=== PATIENT | male | born 1955 | race Caucasian/White ===

== ENCOUNTER 2022-04-23 14:41 | Emergency (ER) | payer OTHER ==
--- OUTSIDE RECORDS SUMMARY | 2022-04-23 14:47 | XMS REPORT | Clinical Summary ---
:1955 Author Organization [facility] MD [facility] Address [address] [place] [address] Care Team Providers Name Role Phone Jillian Su MD Unavailable Carito Bear MD Primary Care Provider [phone] Allergies Active Allergy Reactions Severity Noted Date Comments Povidone-Iodine Rash Low 01/06/2018 Sulfa (Sulfonamide Antibiotics) GI Intolerance 006 Medications Medication Sig Dispensed Refills Start Date End Date Status levETIRAcetam (KEPPRA) Take 500 mg by 0 10/23/2017 Active 500 mg tablet mouth twice daily. budesonide-formoterol Inhale by mouth 2 0 Active (SYMBICORT) 160-4.5 (two) times a day mcg/actuation inhaler as needed. melatonin 5 mg cap Take 10 mg by 0 Active mouth nightly as needed. traMADol (ULTRAM) 50 TAKE 1 TABLET BY 2 12/19/2018 Active mg tablet MOUTH EVERY 6 HOURS NEEDED FOR 30 DAYS xyloxylin oral Swish and swallow 1800 mL 4 04/11/2020 Active suspension 15 mL 4 (four) (AMB-CMPD)Indications: times a day before Esophageal cancer, meals and nightly. Cancer associated pain Same as triple mix magic mouthwash OLANZapine (ZyPREXA) 5 Take 1 tablet (5 30 tablet 0 06/15/2020 Active mg tabletIndications: mg) by mouth at Insomnia, not bedtime. otherwise specified, Restlessness apixaban (Eliquis) 2.5 Take 1 tablet (2.5 60 tablet 2 08/23/19 21 Active mg tabletIndications: mg) by mouth every Other pulmonary 12 (twelve) hours. embolism without acute cor pulmonale, not otherwise specified morphine (MSIR) 15 mg Take 1 tablet (15 30 tablet 0 08/25/2020 Active IR tabletIndications: mg) by mouth every Esophageal cancer 4 (four) hours as needed for moderate pain. fluconazole (Diflucan) Take 1 tablet (200 15 tablet 0 10/03/19 Active 200 mg mg) by mouth tabletIndications: daily. On day 1, Esophageal cancer, take two tablets Candidal esophagitis once. Days 2-14 take one tablet once daily. Active Problems Patient Care Coordination Note Formatting of this note might be differe nt from the original. 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 Other pulmonary embolism without acute cor pulmonale 0 07/20/2018 Acute kidney failure 06/21/2018 Dizziness 06/21/2018 PCR positive for hepatitis C viral RNA (genotype 1A) 1 07/07/2017 Inadequate oral intake 04/26/2018 Dehydration 04/26/2018 Severe protein-calorie malnutrition 04/26/2018 Esophageal cancer 01/06/2018 Secondary malignant neoplasm of brain 01/06/2018 Swallowing painful 01/06/2018 Cancer associated pain 01/06/2018 Essential (primary) hypertension 01/06/2018 Alcohol abuse 01/06/2018 Tobacco use 01/06/2018 History of drug abuse 01/06/2018 Cellulitis and abscess of buttock 01/16/2007 Surgical History Surgery Date Site/Laterality Comments BUNIONECTOMY 06/02/2007 - Left 06/01/2008 FOOT SURGERY 06/02/1987 - Bilateral Rods in left sec ond toe 06/01/1988 CARPAL TUNNEL RELEASE Left CRANIECTOMY 11/30/2017 - 12/30/2017 EGD 09/30/2017 - Biopsy of the es ophagus 10/30/2017 positive for adenocarcinoma VASECTOMY 06/02/1982 - 06/01/1983 NE INSJ TUNNELED CTR VAD W/SUBQ 01/22/2018 Neck/Right Procedure: INSERTION OF PORT AGE 5 YR/> TUNNELED CENTRAL LY INSERTED CENTRAL VENOUS CATHETER WITH SUBCUTANEOUS POR T; Surgeon: Edy pina MD; Location: [facility]; Service: THRCV - VASCULAR SURGERY Medical devices from this surgery are in the Medical Devices section. NE CHG FLUOROGUIDE CNTRL JOSH 01/22/2018 Neck/Right Pro cedure: FLUORO ACCESS,PLACE,REPLACE,REMOVE GUID ANCE FOR CENTRAL VENOUS ACCESS DE VICE PLACEMENT, REPLA CEMENT, OR REMOVAL; Surg cristina: Edy Quintanilla MD; Location: [facility]; Service: THRCV - VASCULAR SURGERY Medical devices from this surgery are in the Medical Devices section. NE CHG US GUIDE, VASCULAR ACCESS 01/22/2018 Right Procedure: US GUIDANCE WITH EVAL OF POT ENTIAL ACCESS SITES, RE ALTIME US VISUALIZATION OF VASC NEEDLE ENTR Y; Surgeon: Edy pina MD; Location: [facility]; Service: THRCV - VASCULAR SURGERY Medical devices from this surgery are in the Medical Devices section. NE INSJ TUNNELED CTR VAD W/SUBQ 04/03/2018 Neck/Right Procedure: INSERTION OF PORT AGE 5 YR/> TUNNELED CENTRAL LY INSERTED CENTRAL VENOUS CATHETER WITH SUBCUTANEOUS POR T; Surgeon: Edy pina MD; Location: [facility]; Service: THRCV - VASCULAR SURGERY Medical devices from this surgery are in the Medical Devices section. NE CHG FLUOROGUIDE CNTRL JOSH 04/03/2018 Neck/N/A Pro cedure: FLUORO ACCESS,PLACE,REPLACE,REMOVE GUID ANCE FOR CENTRAL VENOUS ACCESS DE VICE PLACEMENT, REPLA CEMENT, OR REMOVAL; Surg cristina: Edy Quintanilla MD; Location: [facility]; Service: THRCV - VASCULAR SURGERY Medical devices from this surgery are in the Medical Devices section. NE CHG US GUIDE, VASCULAR ACCESS 04/03/2018 Neck/Right Procedure: US GUIDANCE WITH EVAL OF POT ENTIAL ACCESS SITES, RE ALTIME US VISUALIZATION OF VASC NEEDLE ENTR Y; Surgeon: Edy pina MD; Location: [facility]; Service: THRCV - VASCULAR SURGERY Medical devices from this surgery are in the Medical Devices section. NE RMVL FARZANEH CTR VAD W/SUBQ 04/03/2018 Chest/Right Proce dure: PORT-A-CATH PORT/ENGINE WIPER CTR/PRPH INSJ REMOVAL; Surgeon: Edy Quintanilla MD; Locat ion: [facility]; Service : THRCV - VASCULAR SURGE RY Medical devices from this surgery are in the Medical Devices section. NE APPLY STEREOTACTIC HEADFRAME 04/20/2018 N/A Procedure: APPLY FOR RADIOSURGERY STEREOTACTIC HE ADFRAME FOR RADIOSURGERY ; Surgeon: Marisela Montemayor MD; [facility]ati on: [facility] ; Service: NEUROSU RGERY NE CHG STEREOTACTIC RADIATION TX 04/20/2018 N/A Procedure: 2 STAR - MANAGEMENT CRANIAL LESION STEREO TACTIC RADIATION TX MANAGEMENT,CR ANIAL LESION; Surgeon: Estelle Lubin MD; Location: [facility]; Service: RADIATION ONCOLO GY NE APPLY STEREOTACTIC HEADFRAME 11/06/2018 N/A Procedure: APPLY FOR RADIOSURGERY STEREOTACTIC HE ADFRAME FOR RADIOSURGERY ; Surgeon: Madi Avilez MD; Lo cation: [facility] ; Service: NEUROSU RGERY NE CHG STEREOTACTIC RADIATION TX 11/06/2018 N/A Procedure: 2 STAR - MANAGEMENT CRANIAL LESION STEREO TACTIC RADIATION TX MANAGEMENT,CR ANIAL LESION; Surgeon: Estelle Lubin MD; [facility]: [facility]; Service: RADIATION ONCOLO GY NE ESOPHAGOGASTRODUODENOSCOPY US 07/29/2019 N/A Procedure: UPPER SCOPE W/ADJ STRXRS GASTROINTESTI NAL ENDOSCOPY OF ESO PHAGUS, STOMACH, OR DUOD ENUM ANDJ ADJACENT STRUCTURES, WITH ENDOSCOPIC ULTRA SOUND EXAMINATION; Max geon: Job Gonsalez MD; Loc ation: [facility]; Service: GASTROENTEROLOGY NE EGD TRANSORAL BIOPSY 07/29/2019 Esophagus/N/A Procedur e: UPPER SINGLE/MULTIPLE GASTROINTESTINAL ENDOSCOPY OF ESO PHAGUS, STOMACH, AND DUO DENUM WITH BIOPSY; Max geon: Jbo Gonsalez MD; Loc ation: [facility]; Service: GASTROENTEROLOGY NE EGD BALLOON DILATION ESOPHAGUS 10/20/2019 Esophagus/N/A Procedure: UPPER <30 MM DIAM GASTROINTESTINAL ENDOSCOPY WITH B ALLOON DILATION OF ESOP HAGUS; Surgeon: Olvin Bajwa MD; Location[facility]; Servi ce: GASTROENTEROLOGY NE EGD TRANSORAL BIOPSY 10/20/2019 Esophagus/N/A Procedur e: UPPER SINGLE/MULTIPLE GASTROINTESTINAL ENDOSCOPY OF ESO PHAGUS, STOMACH, AND DUO DENUM WITH BIOPSY; Max geon: Olvin Bajwa MD; Location: [facility]; Servi ce: GASTROENTEROLOGY NE EDG US EXAM SURGICAL ALTER STOM 09/25/2020 N/A Procedure: UPPER DUODENUM/JEJUNUM GASTROINTESTINA L ENDOSCOPY WITH ENDOSCOPIC ULTRA SOUND EXAMINATION; Max geon: Luis Yan MD ; Location: [facility]; Servi ce: GASTROENTEROLOGY Medical History Medical History Date Comments Tobacco use Teens Luna's esophagus 09/2017 Cellulitis and abscess of buttock 01/16/2007 Esophageal cancer 01/06/2018 Secondary malignant neoplasm of brain 01/06/2018 Hypertension 2009 not on meds since 6 months ago Pulmonary embolism 07/19/2018 Chronic obstructive pulmonary disease Family History Medical History Relation Name Comments Liver disease Brother -Thoracic or Lung Father lung cancer Diabetes Father Heart disease Father Lung cancer Father COPD Mother Coronary heart disease (CHD) Mother Heart disease Mother Stomach cancer Other cousin Stomach cancer Paternal Aunt Stomach cancer Paternal Grandfather Pancreatic cancer Paternal Uncle Relation Name Status Comments Brother Alive Daughter Alive Father (Age 71) from a ma ssive heart attack with lung cancer Mother Alive Other cousin (Age 62) Paternal Aunt (Age 78) Paternal Grandfather (Age 68) Paternal Uncle (Age 68) Sister 1 Alive Sister 2 Alive Sister 3 Alive Son Alive Social History Tobacco Use Types Packs/Day Years Used Date Smoking Tobacco: Every Day Cigarettes 1 47 Smokeless Tobacco: Former Tobacco Cessation: Ready to Quit: No; Co unseling Given: No Alcohol Use Standard Drinks/Week Comments Not Currently 0 (1 standard drink = 0.6 oz pure multip le drinks per day, none since alcohol) his last chemotherap y Sex Assigned at Date Recorded Male 10/05/2018 2:00 PM CDT Job Start Date Occupation Industry Not on file Not on file Not on file Obstetrics History Last Filed Vital Signs Not on file Plan of Treatment Health Maintenance Due Date Last Done Comments COVID-19 Vaccination (#1) 04/26/1956 Medical Devices Implanted Type Area Ritual Circumciser Device Shelf Model / Identifier Expiration Serial / Date Lot Fidelia Santana Isp 6fr - [id number] Implant Right: Chest BARD PE RIPHERAL 05/01/2019 [id number] / Implanted: Qty: 1 on 01/22/2018 by Edy Quintanilla MD at [facility] V[facility]ULAR / [id number] [place], Adalbertovue Slim 8fr - [id number] Port Right: BARD PERIP HERAL 01/30/2019 [id number] / Implanted: Qty: 1 on 04/03/2018 by Edy Quintanilla MD at [facility] Internal VASCULAR / Jugular [id number] Results Not on fileafter 04/23/2021 Advance Directives Type Date Recorded 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 Explanati on Advance Directives: 12/18/2018 Medical Jua N[place] r of Elevator Examiner And Adjuster Medical Power of Elevator Examiner And Adjuster Code Status Date Activated Date Inactivated Comments Full Code 10/21/2019 6:27 PM 10/22/2019 5:41 PM Code Status Date Activated Date Inactivated Comments Full Code 11/06/2018 6:10 AM 11/06/2018 6:51 PM Full Code 06/21/2018 10:30 PM 06/22/2018 5:03 PM Full Code 06/21/2018 10:30 PM 06/21/2018 10:30 PM Full Code 04/25/2018 4:37 AM 04/27/2018 3:11 PM Care Teams Motion Study Engineer Relationship Specialty Start Date End Date Jillian Su, PCP - External Internal Medicine 12/26/17 Referring [address] [place] [address] Sae Hurtado PCP - General Gastrointestinal Medical 01/02/18 MD [facility] [address] [place] [address] [phone]
--- OUTSIDE RECORDS SUMMARY | 2022-04-23 14:48 | XMS REPORT | Continuity of Care Document ---
:1955 Author Organization [facility] t Address [address] [place] [address] Care Team Providers Name Role [facility] [place] FRIDA Negron [facility] Primary Care Physician Unavailable Wilder Pinzon Attending Clinician Unavailable SYSTEM, PROVIDER NOT IN Attending Clinician Unavailable RAUL MORAN Attending Clinician Unavailable Raul Moran MD Attending Clinician OLVIN HERRERA Attending Clinician Unavailable Olvin Herrera DO Attending Clinician ROSA LEIJA Attending Clinician Unavailable CIARA HURTADO Attending Clinician Unavailable ИВАН DIGGS Attending Clinician Unavailable LORELEI MONTES Attending Clinician Unavailable ABHINAV SAMUEL Attending Clinician Unavailable Christopher Mcintosh Admitting Clinician Unavailable OLVIN HERRERA Admitting Clinician Unavailable Payers Payer Name Policy Type Policy Number Effective Date Expiration Date [facility][note 3] [id number] 2004 00:00:00 [employer] GENERIC [id number] 2021 00:00:00 FOR LIFE [id number] 2021 00:00:00 [place] [id number] 2018 00:00:00 Problems Condition Condition Condition Status Onset Resolution Last Treating Co mments Source Name Details Category Date Date Treatment Clinician Date Personal Personal Disease Active Overview: Un pita history of history of 3-15 Formattin ity of malignant malignant 00:00: [place] of [place] neoplasm neoplasm 00 note MD of of might be Anderso esophagus esophagus different n from the Cancer original. Center Added automatic ally from request for surgery [id number] Nausea and Nausea and Disease Active U nivers vomiting vomiting 5-21 ity of 00:00: [facility] Abdominal Abdominal Disease Active Uni vers pain pain 5-21 ity of 00:00: MD [facility] [place] Hypokalemi Hypokalemi Disease Active U nivers a a 5-21 ity of 00:00: MD [facility] [place] Secondary Secondary Disease Active Uni vers and and 9-24 ity of unspecifie [place]spec[place] 00 malignant malignant Mode rso neoplasm neoplasm n of of Cancer intra-abdo intra-abdo Ce nter golden golden lymph lymph nodes nodes Other Other Disease Active Univers pulmonary pulmonary 2-18 ity of embolism embolism 00:00: [place] without without 00 acute cor acute cor Mode rso pulmonale pulmonale n Cancer Center Acute Acute Disease Active Univers kidney kidney 1-20 ity of failure failure 00:00: 00 MD [facility] Dizziness Dizziness Disease Active Uni vers 1-20 ity of 00:00: MD [facility] PCR PCR Disease Active 2017-06 Univers positive positive 2-05 ity of for for 00:00: [place] hepatitis hepatitis 00 C viral C viral Anderso RNA RNA n (genotype (genotype Canc er 1A) 1A) Center Inadequate Inadequate Disease Active 2017-06 U nivers oral oral 1-25 ity of intake intake 00:00: 00 MD [facility] Dehydratio Dehydratio Disease Active 2017-06 U calistaers n n 1-25 ity of 00:00: [place] 00 MD [facility] 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 1-25 it y of ivania redd 00:00: [place] malnutriti malnutriti 00 on sampson donahue [facility] 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 01-06 ity of 00:00: [place] 00 MD [facility] 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 00 MD [facility] Swallowing Swallowing Disease Active U vernon painful painful 01-06 ity of 00:00: [place] 00 MD [facility] Cancer Cancer Disease Active Univers associated associated 01-06 it y of pain pain 00:00: 00 MD [facility] Essential Essential Disease Active Uni vers (primary) (primary) 01-06 ity of hypertensi hypertensi 00:00[place] on MD [facility] Alcohol Alcohol Disease Active Univers abuse abuse 01-06 ity of 00:00: [place] 00 MD [facility] Tobacco Tobacco Disease Active Univers use use 01-06 ity of 00:00: 00 MD [facility] History of History of Disease Active U nivers drug abuse drug abuse 01-06 it y of 00:00: [place] 00 MD [facility] Cellulitis Cellulitis Disease Active U nivers and and 01-16 ity of abscess of abscess of 00:[place] buttock buttock 00 MD [facility] Cellulitis Cellulitis Disease Active Overview : Univers and and 09-22 Formattin ity of abscess of abscess of 00:00: g of this [place] foot, foot, 00 note Medical except except might be Branch toes toes different from the original. Left foot celluliti s Chest pain Chest pain Disease Active Overview : Univers - Formattin ity of 00:00: g of this [place] 00 note Medical might be Branch different from the original. ICD10 Diagnosis Term Epic [facility] Utility Allergies, Adverse Reactions, Alerts Allergy Allergy Status Severity Reaction(s) Onset Inactive Treating Comm ents Source Name Type Date Date Clinician BETADINE DRUG Active Anaphylaxis 2021-06 Uni vers ANTISEPT 1-15 ity of IC GAUZE 00:00: [place] 00 Medical Branch Betadine Propensi Active Anaphylaxis 2021-06 U nivers Antisept ty to 1-15 ity of ic Gauze adverse 00:00: [place] reaction 00 Medical s Branch Sulfa DA Active DE RASH 2020-06 [facility] (Sulfona 2-08 [place] m[facility] 00:00: d Antibiot 00 Medical ics) Center Sulfa DA Active DE 2020-06 [facility] (Sulfona 0-13 [place] 00:00: d Antibiot 00 Medical ics) Center Sulfa DA Active DE RASH 2020-06 [facility] (Sulfona 0-13 [place] 00:00: d Antibiot 00 Medical ics) Center Sulfa DA Active DE [facility] (Sulfona 8-20 [place] [facility] 00:00: d Antibiot 00 Medical ics) Center Sulfa DA Active DE RASH [facility] (Sulfona 8-20 [place] [facility] 00:00: d Antibiot 00 Medical ics) Center Sulfa DA Active DE [facility] (Sulfona 5-17 [place] [facility] 00:00: d Antibiot 00 Medical ics) Center Sulfa DA Active DE RASH [facility] (Sulfona 5-17 [place] [facility] 00:00: d Antibiot 00 Medical ics) Center Povidone Propensi Active Rash Univer s -Iodine ty to 8-07 ity of adverse 00:00: [place] reaction 00 MD [facility] POVIDONE DRUG Active Low Rash 2017- -IODINE INGREDI 01-06 Anderso 00:00: n 00 POVIDONE DRUG Active Low Rash 2017- MD -IODINE INGREDI 01-06 Anderso 00:00: n 00 Sulfa DA Active DE [facility] (Sulfona 2-19 [place] [facility] 00:00: d Antibiot 00 Medical ics) Center Sulfa DA Active DE RASH [facility] (Sulfona 2-19 [place] [facility] 00:00: d Antibiot 00 Medical ics) Center Sulfa Propensi Active GI 2006-0 Univers (Sulfona ty to Intolerance 4-23 ity of mide adverse 00:00: [place] Antibiot reaction 00 MD ics) s [facility] SULFA Drug Active NAUSEA ONLY Unive rs (SULFONA Class 4-23 ity of MIDE 00:00: [place] ANTIBIOT 00 Medical ICS) Branch Sulfa Propensi Active Nausea Only Uni vers (Sulfona ty to 4-23 ity of mide adverse 00:00: [place] Antibiot reaction 00 Medica l ics) s Branch SULFA Drug Active Nausea MD (SULFONA Class 4-23 Anderso MIDE 00:00: n ANTIBIOT 00 ICS) SULFA Drug Active Nausea MD (SULFONA Class 4-23 Anderso MIDE 00:00: n ANTIBIOT 00 ICS) Family History Family Member Diagnosis Comments Start Date Stop Date Source Natural brother Liver disease [facility] [place] [facility] Natural daughter [facility]i ty [facility] [place] MD [facility] Natural father -Thoracic or Lung [facility] [place] [facility] Natural father Diabetes [facility] Natural father Heart disease Univers ity of [place] [facility] Natural father Lung cancer [facility] [place] [facility] Natural mother COPD [facility] Natural mother Coronary heart Univer sity of disease (CHD) [place] MD Shannon scott [facility] Natural mother Heart disease Univers ity of [place] [facility] Other Stomach cancer [facility] MD [facility] Paternal aunt Stomach cancer Univers ity of [place] MD [facility] Paternal Stomach cancer [place] of grandfather [place] MD Co[facility] Paternal uncle Pancreatic cancer Uni versity of [place] MD [facility] Center Natural sister [facility] MD [facility] Natural son [facility] MD [place] [facility] Center Social History Social Habit Start Date Stop Date Quantity Comments Source Exposure to Not sure University of SARS-CoV-2 [place] Medical (event) Branch History of Smokes tobacco University of tobacco use daily [facility] Alcohol intake 2020-10-02 2020-10-02 Ex-drinker University of 00:00:00 00:00:00 (finding) Richrad [facility] Alcohol Comment 2018-03-31 2018-03-31 multiple drinks per University of 00:00:00 00:00:00 day, none since his [place] last chemotherapy Cancer Center Cigarettes smoked 2018-01-19 2018-01-19 Univers ity of current (pack per 00:00:00 00:00:00 [place] Henny Darren ) - Reported Cancer Ce nter Cigarette 2018-01-19 2018-01-19 University of pack-years 00:00:00 00:00:00 Richard dimas [facility] Tobacco use and 2018-01-19 2018-01-19 Former smokeless Uni versity of exposure 00:00:00 00:00:00 tobacco user [place] [facility] Sex [birth year] Universit y of 00:00:00 00:00:00 [place] Medical [place] Smoking Status Start Date Stop Date Source Tobacco smoking consumption Univ [facility] Branch Smokes tobacco daily 2018-01-19 00:00:00 Univers ity of [facility] Medications Ordered Filled Start Stop Current Ordering Indication Dosage Frequency Signature Comments Components Source Medication Medication Date Date Medication? Clinician (SIG) Name Name hydroCHLORO 2021-06 Yes [id number] 25mg Take 1 Univers thiazide 25 1-15 tablet by ity of mg tablet 00:00: mouth 00 every Medical morning. Branch HYDROcodone 2021- No 1{tbl} 1 tablet, Univers -acetaminop 2-10 -10 Oral, ity of hen (NORCO) 15:45: 14:57 ONCE, 1 [place] 10-325 mg 00 :00 dose, On Medica l tablet 1 Denisse Branch tablet 07/12/21 at 0945, Routine methocarbam Yes [id number] 500mg Take 1 Univers oL 500 mg 2-10 tablet by ity o f tablet 00:00: mouth 3 [place] 00 (three) Medical times Branch daily. methocarbam Yes [id number] 500mg Take 1 Univers oL 500 mg 2-10 tablet by ity o f tablet 00:00: mouth 3 00 (three) Medical times Branch daily. traMADoL 2021- No [id number] 100mg Take 1 Unive rs 100 mg 24 2-10 -18 tablet by ity of hr tablet 00:00: 05:59 mouth [place] 00 :00 daily for Medical 7 days. Branch Indication s: acute pain, chronic pain methocarbam 2021- No 1000mg 1,000 mg, Univers oL 07-04 Oral, ity of (ROBAXIN) 16:00: 15:13 ONCE, 1 [place] tablet 00 :00 dose, On Medical 1,000 mg Fri07/04/21 Branc h at 1000, SARAH ondansetron 2021- No 4mg 4 mg, Slow Univers (ZOFRAN 07-04 IV Push, ity of (PF)) 16:00: 15:12 ONCE, 1 [place] injection 4 00 :00 dose, On Medi mallorie mg Fri07/04/21 Branch at 1000, Routine morpHINE 2021- No 4mg 4 mg, Slow Un pita injection 4 07-04 IV Push, ity of mg 16:00: 15:12 ONCE, 1 [place] 00 :00 dose, On Medical Fri07/04/21 Branch at 1000, STAT methocarbam 0 Yes [id number] 500mg Take 1 Univers oL 500 mg 07-04 tablet by ity o f tablet 00:00: mouth 3 [place] 00 (three) Medical times Branch daily. methylPREDN 2021-0 Yes [id number] Take by Univers ISolone 07-04 mouth ity of (MEDROL, 00:00: SEE-INSTRU Jason as JASMIN,) 4 mg 00 CTIONS. Medica l tablets follow Branch package directions naproxen 2021-0 Yes [id number] 550mg Take 1 U nivers sodium 2-02 tablet by ity of (ANAPROX 00:00: mouth 2 [place] DS) 550 mg 00 (two) Medical tablet times Branch daily with meals. methylPREDN 2021-0 Yes [id number] Take by Univers ISolone 07-04 mouth ity of (MEDROL, 00:00: SEE-INSTRU Jason as JASMIN,) 4 mg 00 CTIONS. Medica l tablets follow Branch package directions naproxen 2021-0 Yes [id number] 550mg Take 1 U nivers sodium 2-02 tablet by ity of (ANAPROX 00:00: mouth 2 [place] DS) 550 mg 00 (two) Medical tablet times Branch daily with meals. methylPREDN Yes [id number] Take by Univers ISolone 07-04 mouth ity of (MEDROL, 00:00: SEE-INSTRU Jason as JASMIN,) 4 mg 00 CTIONS. Medica l tablets follow Branch package directions naproxen Yes [id number] 550mg Take 1 U nivers sodium -02 tablet by ity of (ANAPROX 00:00: mouth 2 [place] DS) 550 mg 00 (two) Medical tablet times Branch daily with meals. traMADoL 2021- No [id number] 100mg Take 1 Unive rs 100 mg 24 07-04 tablet by ity of hr tablet 00:00: 05:59 mouth [place] 00 :00 daily for Medical 7 days. Branch Indication s: acute pain methocarbam 2021- No [id number] 500mg Take 1 Univers oL 500 mg 07-04 tablet by ity of tablet 00:00: 00:00 mouth 3 [place] 00 :00 (three) Medical times Branch daily. naproxen 2021- No [id number] 550mg Take 1 Univers sodium 07-04 tablet by ity of (ANAPROX 00:00: 00:00 mouth 2 [place] DS) 550 mg 00 :00 (two) Medical tablet times Branch daily with meals. methylPREDN 2021- No [id number] Take by Univers ISolone 07-04 mouth ity of (MEDROL, 00:00: 00:00 [place]-INSTRU [place] JASMIN,) 4 mg 00 :00 CTIONS. Medica l tablets follow Branch package directions methocarbam 2021- No [id number] 500mg Take 1 Univers oL 500 mg 07-04 tablet by ity of tablet 00:00: 00:00 mouth 3 [place] 00 :00 (three) Medical times Branch daily for 5 days. fluconazole Yes Candidal 200mg Take 1 Univers (Diflucan) 03 esophagitis tablet ity of 200 mg 00:00: (200 mg) [place] tablet 00 by mouth MD daily. On Anders day 1, n take two Cancer tablets Center once. Days 2-14 take one tablet once daily. budesonide- Yes Inhale by U nivers formoterol 4-26 mouth 2 ity of (SYMBICORT) 10:43: (two) [place] 160-4.5 15 times a MD mcg/actuati day as Michael o on inhaler needed. n Cancer Center melatonin 5 Yes 10mg Take 10 mg Univers mg cap 4-26 by mouth ity of 10:43: nightly as [place] 15 needed. MD [facility] morphine Yes Esophageal 15mg Take 1 U nivers (MSIR) 15 3-26 cancer tablet (15 it y of mg IR 00:00: mg) by [place] tablet 00 mouth MD every 4 Anderso (four) n hours as Cancer needed for Center moderate pain. apixaban Yes Other 2.5mg Take 1 Unive rs (Eliquis) 3-23 pulmonary tablet ity of 2.5 mg 00:00: embolism (2.5 mg) Jason as tablet 00 without by mouth acute cor every 12 Michael o pulmonale, (twelve) n not hours. Cancer otherwise Center specified OLANZapine Yes Restlessnes 5mg Take 1 Univers (ZyPREXA) 5 1-14 s tablet (5 ity of mg tablet 00:00: mg) by [place] 00 mouth at MD bedtime. [facility] xyloxylin 2019-06 Yes Cancer 15mL Swish and U nivers oral 1-10 associated swallow 15 ity of suspension 00:00: pain mL 4 [place] (AMB-CMPD) 00 (four) MD times a Anderso day before n meals and Cancer nightly. Center Same as triple mix magic mouthwash traMADol Yes TAKE 1 Univers (ULTRAM) 50 7-20 TABLET BY ity of mg tablet 00:00: MOUTH [place] 00 EVERY 6 MD HOURS Anderso NEEDED FOR n 30 DAYS Cancer Center morpHINE 2017-06 Yes 15mg Take 15 mg Uni vers I.R. 15 mg 1-27 by mouth ity o f tablet 05:51: every 6 [place] 17 (six) Medical hours as Branch needed for 24 (twenty-fo ur) hours. ondansetron 2017-06 Yes 4mg Take 4 mg U nivers 4 mg tablet 1-27 by mouth ity of 05:51: every 8 [place] 17 (eight) Medical hours as Branch needed. metoclopram 2017-06 Yes Take by Uni vers bj HCl 1-27 mouth. ity of (REGLAN 05:51: [place] ORAL) Medical Branch levetiracet 2017-06 Yes Take by Uni vers am (KEPPRA 1-27 mouth. ity of ORAL) 05:51: [place] [address] Medical Branch morpHINE 2017-06 Yes 15mg Take 15 mg Uni vers E.R. 30 mg 1-27 by mouth ity o f SR tablet 05:51: every 12 [place] 17 (twelve) Medical hours. Branch morpHINE 2017-06 Yes 15mg Take 15 mg Uni vers I.R. 15 mg 1-27 by mouth ity o f tablet 05:51: every 6 [place] [address] (six) Medical hours as Branch needed for 24 (twenty-fo ur) hours. ondansetron 2017-06 Yes 4mg Take 4 mg U nivers 4 mg tablet -27 by mouth ity of 05:51: every 8 [place] [address] (eight) Medical hours as Branch needed. metoclopram 2017-06 Yes Take by Uni vers bj HCl -27 mouth. ity of (REGLAN 05:51: [place] ORAL) Medical Branch levetiracet 2017-06 Yes Take by Uni vers am (KEPPRA -27 mouth. ity of ORAL) 05:51: [place] [address] Medical Branch morpHINE 2017-06 Yes 15mg Take 15 mg Uni vers E.R. 30 mg 1-27 by mouth ity o f SR tablet 05:51: every 12 [place] 17 (twelve) Medical hours. Branch morpHINE 2017-06 Yes 15mg Take 15 mg Uni vers I.R. 15 mg 1-27 by mouth ity o f tablet 05:51: every 6 [place] [address] (six) Medical hours as Branch needed for 24 (twenty-fo ur) hours. ondansetron 2017-06 Yes 4mg Take 4 mg U nivers 4 mg tablet 1-27 by mouth ity of 05:51: every 8 [place] [address] (eight) Medical hours as Branch needed. metoclopram 2017-06 Yes Take by Uni vers bj HCl 1-27 mouth. ity of (REGLAN 05:51: [place] ORAL) Medical Branch levetiracet 2017-06 Yes Take by Uni vers am (KEPPRA 1-27 mouth. ity of ORAL) 05:51: [place] [address] Medical Branch morpHINE 2017-06 Yes 15mg Take 15 mg Uni vers E.R. 30 mg 1-27 by mouth ity o f SR tablet 05:51: every 12 [place] 17 (twelve) Medical hours. Branch levETIRAcet Yes 500mg Take 500 U nivers am (KEPPRA) 5-24 mg by ity of 500 mg 00:00: mouth [place] tablet 00 twice MD daily. [facility] MINOCYCLINE Yes take 1 tab Univers 100 MG ORAL 8-22 twice a ity o f CAP 00:00: day for 7 Medical Branch HYDROCODONE Yes take 1-2 Un pita -ACETAMINOP 8-22 tab po q ity of HEN 5-325 00:00: 4-6 hrs [place] MG ORAL TAB 00 prn pain Medi mallorie Branch MINOCYCLINE Yes take 1 tab Univers 100 MG ORAL 8-22 twice a ity o f CAP 00:00: day for Medical Branch HYDROCODONE Yes take 1-2 Un pita -ACETAMINOP 8-22 tab po q ity of HEN 5-325 00:00: 4-6 hrs [place] MG ORAL TAB 00 prn pain Medi mallorie Branch MINOCYCLINE Yes take 1 tab Univers 100 MG ORAL 8-22 twice a ity o f CAP 00:00: day for Medical Branch HYDROCODONE Yes take 1-2 Un pita -ACETAMINOP 8-22 tab po q ity of HEN 5-325 00:00: 4-6 hrs [place] MG ORAL TAB 00 prn pain Medi mallorie Branch Vital Signs Vital Name Observation Time Observation Value Comments Source Systolic blood 2022-04-16 18:00:00 163 mm[Hg] Univer sity of pressure [facility] Diastolic blood 2022-04-16 18:00:00 108 mm[Hg] [facility] [place] [facility] Heart rate 2022-04-16 18:00:00 94 /min [facility] Body temperature 2022-04-16 18:00:00 36.67 [facility] Respiratory rate 2022-04-16 18:00:00 19 /min [facility] Body height 2022-04-16 18:00:00 182.9 cm [facility] Body weight 2022-04-16 18:00:00 58.968 kg [facility]i ty [facility] [place] [facility] BMI 2022-04-16 18:00:00 17.63 kg/m2 [facility]i ty [facility] [place] [facility] Oxygen saturation in 2022-04-16 18:00:00 97 /min University of Arterial blood by [place] Medi mallorie Pulse oximetry Branch Systolic blood 2021-07-12 14:20:00 158 mm[Hg] Univer sity of pressure [place] [facility] Diastolic blood 2021-07-12 14:20:00 104 mm[Hg] Unive rsity of pressure [place] [facility] Heart rate 2021-07-12 14:20:00 85 /min [facility]i [facility] [place] [facility] Body temperature 2021-07-12 14:20:00 36.44 Leydi Univ ersity [facility] [place] [facility] Respiratory rate 2021-07-12 14:20:00 16 /min Univ ersity of [place] [facility] [place] Body weight 2021-07-12 14:20:00 58.968 kg [facility]i ty [facility] [place] [facility] BMI 2021-07-12 14:20:00 20.36 kg/m2 [facility]i [facility] [place] [facility] Oxygen saturation in 2021-07-12 14:20:00 98 /min University of Arterial blood by [facility] mallorie Pulse oximetry Branch Systolic blood 2021-07-04 16:00:00 127 mm[Hg] Univer sity of pressure [place] [facility] Diastolic blood 2021-07-04 16:00:00 84 mm[Hg] Unive rsity of pressure [place] [facility] Heart rate 2021-07-04 16:00:00 87 /min [facility]i ty [facility] [place] [facility] Oxygen saturation in 2021-07-04 16:00:00 96 /min University of Arterial blood by [place] Medi mallorie Pulse oximetry Branch Respiratory rate 2021-07-04 15:24:05 18 /min Univ ersity [facility] [place] [facility] Body temperature 2021-07-04 14:21:00 36.94 Leydi Univ ers[facility] [place] [facility] Body weight 2021-07-04 14:21:00 58.968 kg [facility] [place] [facility] BMI 2021-07-04 14:21:00 20.36 kg/m2 [facility] [place] [facility] WEIGHT 2019-12-08 00:00:00 62.7 kg Procedures Procedure Date / Time Performed Performing Clinician [facility] e CONSENT/REFUSAL FOR 2022-04-16 17:41:10 [facility] Branch TREATMENT NOTICE OF PRIVACY 2021-07-12 14:11:31 [facility] Branch CONSENT/REFUSAL FOR 2021-07-12 14:10:46 Doctor Unassigned, No [facility] AND Name Medical Branch TREATMENT CT LUMBAR SPINE WO 2021-07-04 15:38:00 Olvin Herrera [facility] CONTRAST Medical Branch COMP. METABOLIC PANEL 2021-07-04 15:06:00 Olvin Herrera [facility] ([id number]) Medical [place] CBC WITH DIFF 2021-07-04 15:06:00 Olvin Herrera [place] o f [facility] Plan of Care Planned Activity Planned Date Details Comments Source Future Scheduled 2022-04-15 COVID-19 Vaccination [facility] Test 21:57:32 (#1) [code = COVID-19 [place] [facility] Vaccination (#1)] Center Encounters Start End Encounter Admission Attending Care Care Encounter Source Date/Time Date/Time Type Type Clinicians Facility Department ID 2020-10-13 Inpatient Pinzon, HCAPM HCAPM [id number] [facility] 09:36:11 Wilder Schultz [facility] 2019-12-03 Outpatient SYSTEM, [facility] [id number] 13:15:10 PROVIDER Michael o n 2022-04-16 2022-04-16 Emergency Albin MORAN [facility] ERT [id number] Univers 12:06:00 12:43:00 RAUL johnson [facility] 2022-04-16 2022-04-16 Emergency Dean [facility] [id number] Univers 12:06:00 12:43:00 Raul [place] [id number] i ty [facility] [id number] [facility] [id number] [place] [id number] Branch 2021-07-12 2021-07-12 Emergency Albin HERRERA WVCARLITA ERT [id number] Univers 08:22:00 09:16:00 OLVIN johnson [facility] 2021-07-12 2021-07-12 Emergency [facility] [id number] Univers 08:22:00 09:16:00 Olvin DE LA ROSA [id number] i ty of [place] [id number] [facility] [id number] [place] [address] Branch 2021-07-04 2021-07-04 Emergency X [facility] ERT [id number] Univers 08:24:00 10:51:00 OLVIN fredericmona [facility] 2021-07-04 2021-07-04 [facility] [id number] Univers 08:24:00 10:51:00 Olvin DE [place] ROS[place] [id number] i ty of [place] [id number] [facility] [id number] [place] [address] Branch 2021-05-09 2021-05-09 Outpatient EL Pinzon, HCAPM RADI [id number] [facility] 08:16:00 08:16:00 Wilder 09 [facility] 2021-03-14 2021-03-14 Outpatient EL Pinzon, HCAPM RADI [id number] [facility] 08:00:00 08:00:00 Wilder 20 [facility] 2021-01-19 2021-01-19 Outpatient EL Pinzon, HCAPM RADI [id number] [facility] 06:36:00 06:36:00 Wilder 56 [facility] 2020-01-19 2020-01-19 Outpatient EL ODILON MDA MDA [id number] 00:00:00 00:00:00 Michael KOENIG 2020-01-19 2020-01-19 Outpatient EL HURTADO, MDA MDA [id number] MD 00:00:00 00:00:00 CIARA donahue 2020-01-18 2020-01-18 Outpatient EL ODILON MDA MDA [id number] 00:00:00 00:00:00 Michael KOENIG 2020-01-17 2020-01-17 Outpatient EL HURTADO, MDA MDA [id number] 00:00:00 00:00:00 CIARA donahue 2020-01-17 2020-01-17 Outpatient EL HURTADO, MDA MDA [id number] MD 00:00:00 00:00:00 CIARA Gillilanders o n 2020-01-17 2020-01-17 Outpatient EL HURTADO, MDA MDA [id number] MD 00:00:00 00:00:00 CIARA Gillilanders o n 2020-01-04 2020-01-04 Outpatient EL DONTAE, MDA MDA [id number] MD 00:00:00 00:00:00 ИВАН Coello jese donahue 2020-01-04 2020-01-04 Outpatient EL MONTES, MDA MDA [id number] MD 00:00:00 00:00:00 LORELEI Antonio yarely n 2019-12-29 2019-12-29 Outpatient EL HURTADO, MDA MDA [id number] MD 00:00:00 00:00:00 CIARA Gillilanders o n 2019-12-29 2019-12-29 Outpatient EL HURTADO, MDA MDA [id number] MD 00:00:00 00:00:00 CIARA Gillilanders o n 2019-12-08 2019-12-08 Outpatient EL HURTADO, MDA MDA [id number] MD 08:39:24 18:04:05 CIARA Gillilanders o n 2019-12-08 2019-12-08 Outpatient EL HURTADO, MDA MDA [id number] MD 08:12:50 08:29:22 CIARA Gillilanders o n 2019-12-07 2019-12-07 Outpatient EL ODILON MDA MDA [id number] MD 08:35:26 09:15:09 Michael KOENIG 2019-12-07 2019-12-07 Outpatient EL HURTADO, MDA MDA [id number] 07:02:01 07:05:47 CIARA Gillilanders o n 2019-11-26 2019-11-26 Outpatient EL ODILON MDA MDA [id number] MD 00:00:00 00:00:00 Michael KOENIG 2019-11-25 2019-11-25 Outpatient EL ODILON MDA MDA [id number] MD 00:00:00 00:00:00 Michael KOENIG 2019-11-24 2019-11-24 Outpatient EL ROMO MDA MDA [id number] MD 10:52:01 11:32:51 Michael SAMSON 2019-11-17 2019-11-17 Outpatient JIMY HURTADO MDA [facility] [id number] 13:56:46 13:59:56 CIARA donahue Results Test Description Test Time Test Comments Results Result Comments Source COMP. METABOLIC PANEL (08421) 2021-07-04 15:47:17 Test Item Value Reference Range Interpretation Comme nts NA (test code = 3625976045) 132 mmol/L 135-145 L K (test code = 2628533369) 4.3 mmol/L 3.5-5.0 CL (test code = 9856446890) 99 mmol/L 98-108 CO2 TOTAL (test code = 2520752511) 25 mmol/L 23-31 AGAP (test code = 7712675936) 2-16 BUN (test code = 0011174869) 15 mg/dL 7-23 GLUCOSE (test code = 0730740862) 100 mg/dL 70-110 CREATININE (test code = 0.68 mg/dL 0.60-1.25 6502083628) TOTAL BILI (test code = 0.6 mg/dL 0.1-1.9 9409128398) CALCIUM (test code = 8322203828) 8.1 mg/dL 8.6-10.6 L T PROTEIN (test code = 2169937043) 7.0 g/dL 6.3-8.2 ALBUMIN (test code = 7235464907) 4.3 g/dL 3.5-5.0 ALK PHOS (test code = 1966867480) 75 U/L 34-122 ALTv (test code = 1742-6) 14 U/L 5-50 AST(SGOT) (test code = 3736881721) 28 U/L 13-40 eGFR (test code = 5961019390) mL/min/1.73m2 DEANN (test code = DEANN) Association of Glomerular Filtration Rate (GFR) and Staging of Kidney Disease* + +-------- + ------+| GFR (mL/min/1.73 m2) ?| With Kidney Damage ?| ?Without Kidney Damage+ +-- + +| ?>90 ?| ?Stage one ?| ? Normal ?+ +------- + -------+| ?60-89 ?| ?Stage two ?| ? Decreased GFR ? + +-------- + ------+| ?30-59 ?| ?Stage three ?| ? Stage three ? + +-------- + ------+| ?15-29 ?| ?Stage four ? | ? Stage four ?+ +------- + -------+| ?<15 (or dialysis) ? ?| ?Stage five ? | ? Stage five ?+ +------- + -------+ *Each stage assumes the associated GFR level has been in effect for at least three months. ?Stages 1 to 5, with or without kidney disease, indicate chronic kidney disease. Notes: Determination of stages one and two (with eGFR >59mL/min/1.73 m2) requires estimation of kidney damage for at least three months as defined by structural or functional abnormalities of the kidney, manifested by either:Pathological abnormalities or Markers of kidney damage (including abnormalities in the composition of the blood or urine or abnormalities in imaging tests). Lab Interpretation (test code = Abnormal 43582-1) [facility] WITH [id number] 15:28:37 Test Item Value Reference Range Interpretation Comments WBC (test code = See_Comment [Automated 2659-2) message] The sy stem which generated this result transmitted reference range : 4.20 - 10.70 10*3/?L. The reference range was not used to interpret this result as normal/abnormal . RBC (test code = See_Comment [Automated 187-8) message] The sy stem which generated this result transmitted reference range : 4.26 - 5.52 10*6/?L. The reference range was not used to interpret this result as normal/abnormal . HGB (test code = 15.6 g/dL 12.2-16.4 718-7) HCT (test code = 45.5 % 38.4-49.3 4544-3) MCV (test code = 94.0 fL 81.7-95.6 787-2) MCH (test code = 32.2 pg 26.1-32.7 785-6) MCHC (test code = 34.3 g/dL 31.2-35.0 786-4) RDW-SD (test code = 42.7 fL 38.5-51.6 96816-3) RDW-CV (test code = 12.2 % 12.1-15.4 788-0) PLT (test code = See_Comment L [Automated 777-3) message] The sy stem which generated this result transmitted reference range : 150 - 328 10*3/ ?L. The reference r jackeline was not used to interpret this result as normal/abnormal . MPV (test code = 9.6 fL 9.8-13.0 L 62860-5) IPF % (test code = 3.4 % 1.2-10.7 Platelet count 3320478729) measured by fluorescence method. NRBC/100 WBC (test See_Comment [Automat ed code = 3578211443) message] The system which generated this result transmitted reference range : 0.0 - 10.0 /100 WBCs. The refer ence range was not u sed to interpret th is result as normal/abnormal . NRBC x10^3 (test code <0.01 See_Comment [Auto mated = 4158204624) message] The s ystem which generated this result transmitted reference range : 10*3/?L. The reference range was not used to interpret this result as normal/abnormal . GRAN MAT (NEUT) % 70.5 % (test code = 770-8) IMM GRAN % (test code 0.40 % = 0514840584) LYMPH % (test code = 13.9 % 736-9) MONO % (test code = 14.4 % 5905-5) EOS % (test code = 0.4 % 713-8) BASO % (test code = 0.4 % 706-2) GRAN MAT x10^3(ANC) 3.13 10*3/uL 1.99-6.95 (test code = 5897867824) IMM GRAN x10^3 (test <0.03 0.00-0.06 code = 6436200569) LYMPH x10^3 (test code 0.62 10*3/uL 1.09-3.23 L = 731-0) MONO x10^3 (test code 0.64 10*3/uL 0.36-1.02 = 742-7) EOS x10^3 (test code = <0.03 0.06-0.53 L 711-2) BASO x10^3 (test code <0.03 0.01-0.09 = 704-7) Lab Interpretation Abnormal (test code = 59710-5) [facility]- MRI BRAIN W WO [id number] 10:19:00 [facility] 1955 Sex: M FAX: Christopher Hankins DO [phone] Camps: PM St: REG FAX: Wilder Mitchell MD [phone] Name: PIETER FOWLER [facility] : 1955 Age/S: 65/M [address] [facility] Unit #: [id number] Loc: [place] [address] Phys: Wilder Pinzon MD Acct: [id number] Dis Date: Status: REG CLI PHONE #: [phone] Exam Date: 05/09/2021 1000 FAX #: Reason: MALIGNANT NEOPLASM OF CARDIA EXAMS: CPT: [id number] MRI BRAIN W WO CONT 84157 Dictation location: U19. MRI BRAIN WITHOUT AND WITH CONTRAST HISTORY: MALIGNANT NEOPLASM OF CARDIA TECHNIQUE: Multiplanar and multiple pulse sequences were obtained throughout the brain without and with gadolinium (14 ml). COMPARISON: MRI brain 01/19/21 FINDINGS: Diffusion weighted imaging shows no evidence of acute ischemia. The pituitary and posterior fossa are unremarkable. Again noted are changes ofa left posterior parietal craniotomy with a small area of encephalomalacia along the medial posterior left parietal lobe. No soft tissue lesion or abnormal enhancement seen in the postoperative bed. Again noted are a few scattered T2/FLAIR signal hyperintensities within the white matter. No hemorrhage, mass, mass effect, hydrocephalus, midline shift or extra-axial fluid collection. Contrast images show a region of cortical enhancement along the right posterior temporal parietal region measuring appro ximately 1 cm. On the sagittal reformatted views there suggesting this is more likely artifact. There is likely artifact present as well on the left temporal lobe. Mild thickening of the ethmoid and frontal sinuses. The mastoid air cells are clear. IMPRESSION: New area of potentially cortical enhancement along the right temporal parietal region. However, the sagittal views suggest this may be artifact, favored. Attention on follow-up. Otherwise, no evidence of recurrent or metastatic disease. No evidence of acute ischemia. PAGE 1 Signed Report (CONTINUED) FAX: Christopher Marin DO [phone] Camps: PM St: REG FAX: Wilder Mitchell MD [phone] Name: PIETER FOWLER [facility] : 1955 Age/S: 65/M [address] [address] Unit #: [id number] Loc: [place] [address] Phys: Wilder Pinzon MD Acct: [id number] Dis Date: Status: REG CLI PHONE #: [phone] Exam Date: 05/09/2021 1000 FAX #: Reason: MALIGNANT NEOPLASM OF CARDIA EXAMS: CPT: [id number] MRI BRAIN W WO CONT 26444 (Continued) at 1019 Reported and signed by: Adilson Chacon M.D. CC: Christopher Mcintosh DO; Wilder Pinzon MD Technologist: Coco Augustin, RT(R)(MR) Transcribed Date/Time/By: 05/09/2021 (1019) :[email or web address] Orig Print D/T: S: 05/09/2021 (1028) PAGE 2 Signed Report- CT CHEST W/[id number] 10:06:00 [facility] : 1955 Sex: M Name: PIETER FOWLER [facility] : 1955 Age/S: 65 / M [address] [address] [place] Unit #: [id number] Loc:[place] [address] Phys: Wilder Pinzon MD Acct: [id number] Dis Date: Status: REG CLI PHONE #: [phone] Exam Date: 03/14/2021 0940 FAX #: Reason: NEOPLASM EXAMS: CPT: [id number] CT CHEST W/CONTRAST 92830 EXAMINATION: CT chest, abdomen, and pelvis with contrast INDICATION: History of esophageal cancer COMPARISON: 01/19/2021 LOCATION: S17 TECHNIQUE: Axial CT chest, abdomen, and pelvis was performed with IV contrast. Sagittal and coronal reformatted images were created. CT radiation dose optimizationis achieved for this examination by the use of a CT protocol in accordance with ACR practice guidelin es and adherence to occupational health and safety officer recommendations. DLP: 373 mGy-cm. FINDINGS: CHEST: Right chest portcatheter terminates within superior cavoatrial junction. Calcified right upper lobe nodules again noted. No suspicious lung nodules identified. No acute abnormality seen in the lungs. No pleural effusion or pneumothorax. Normal heart size. Coronary calcifications. Trace pericardial effusion. Ascending thoracic aorta upper limit of normal in caliber. No evidence of dissection. Normal caliber main pulmonary artery. No central pulmonary embolism is seen on non-CTA study. Unchanged nonspecific mediastinal and hilar lymph nodes measuring less than 1 cm in short axis dimension, largest in the precarinalspace measuring 0.9 cm in short axis dimension. No obvious esophageal mass. No acute or aggressive appearing osseous abnormality. ABDOMEN AND PELVIS: Tiny low-attenuation lesion in lateral segment of left hepatic lobe on image 14 is unchanged and too small to characterize. No other focal liver lesions. PAGE 1 Signed Report (CONTINUED) Name: PIETER FOWLER [facility] [place] : 1955 Age/S: 65 / M [address] [address] [place] Unit #: [id number] Loc: [place] [address] Phys: Wilder Pinzon MD Acct: [id number] Date: Status: REG CLI PHONE #: [phone] Exam Date: 03/14/2021 0940 FAX #: Reason: NEOPLASM E XAMS: CPT: [id number] CT CHEST W/CONTRAST 44166 (Continued) Gallbladder, pancreas, spleen, and adrenals are unremarkable. Unchanged subcentimeter low- attenuation renal lesions too small to characterize. Otherwise unremarkable kidneys. No evidence of intestinal obstruction or inflammation. Small fat-con taining inguinal hernias. Normal appendix. No enlarged abdominal or pelvic lymphadenopathy. No free intraperitoneal air or fluid. Normal caliber atherosclerotic abdominal aorta. 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 No acute or aggressive appearing osseous abnormality. IMPRESSION: No specific signs of malignancy in the chest, abdomen, and pelvis. at 1006 Reported and signed by: Jose Segal M.D. CC: Christopher Mcintosh DO; Wilder Pinzon MD Technologist:Norberto Montalvo, RT(R)(CT); .. CTDI: DLP: Trnscb Date/Time: 03/14/2021 (1006) [email or web address] Orig Print D/T: S: 03/14/2021 (1011) PAGE 2 Signed Report- CT ABD PELVIS W/[id number] 10:06:00 [facility] : 1955 Sex: M Name: PIETER FOWLER [facility] : 1955 Age/S: 65 / M [address] [address] [place] Unit #: [id number] Loc: [place] [address] Phys: Wilder Pinzon MD Acct: [id number] Dis Date: Status: REG CLI PHONE #: [phone] Exam Date: 03/14/2021929 FAX #: Reason: Hx Neoplasm EXAMS: CPT: [id number] CT ABD PELVIS W/CONT 98150 EXAMINATION: CT chest, abdomen, and pelvis with contrast INDICATION: History of esophagealcancer COMPARISON: 01/19/2021 LOCATION: S17 TECHNIQUE: Axial CT chest, abdomen, and pelvis was performed with IV contrast. Sagittal and coronal reformatted images were created. CT radiation dose optimization is achieved for this examination by the use of a CT protocol in accordance with ACR practice judy delines and adherence to occupational health and safety officer recommendations. DLP: 373 mGy-cm. FINDINGS: CHEST: Right chest port catheter terminates within superior cavoatrial junction. Calcified right upper lobe nodules again noted. No suspicious lung nodules identified. No acute abnormality seen in the lungs. No pleural effusion or pneumothorax. Normal heart size. Coronary calcifications. Trace pericardial effusion. Ascending thoracic aorta upper limit of normal in caliber. No evidence of dissection. Normal caliber main pulmonary artery. No central pulmonary embolism is seen on non-CTA study. Unchanged nonspecific mediastinal and hilar lymph nodes measuring less than 1 cm in short axis dimension, largest in the precarinal space measuring 0.9 cm in short axis dimension. No obvious esophageal mass. No acute or aggressive appearing osseous abnormality. ABDOMEN AND PELVIS: Tiny low-attenuation lesion in lateral segment of left hepatic lobe on image 14 is unchanged and too small to characterize. No other focal liver lesions. PAGE 1 Signed Report (CONTINUED) Name: PIETER FOWLER [facility] [place] : 1955 Age/S: 65/ M [address] [address] [place] Unit #: [id number] Loc: [place] [address] Phys: Wilder Pinzon MD Acct: [id number] Dis Date: Status: REG CLI PHONE #: [phone] Exam Date: 03/14/2021929 FAX #: Reason: Hx Neoplasm EXAMS: CPT: [id number] CT ABD PELVIS W/CONT 94036 (Continued) Gallbladder, pancreas, spleen, and adrenals are unremarkable. Unchanged subcentimeter low-attenuation renal lesions too small to characterize. Otherwise unremarkable kidneys. No evidence of intestinal obstruction or inflammation. Small fat-containing inguinal hernias. Normal appendix. No enlarged abdominal or pelvic lymphadenopathy. No free intraperitoneal air or fluid. Normal caliber atherosclerotic abdominal aorta. Pars defectsat L5 with associated grade 1 anterolisthesis. No acute or aggressive appearing osseous abnormality.IMPRESSION: No specific signs of malignancy in the chest, abdomen, and pelvis. at 1006 Reported and signed by: Jose Segal M.D. CC: Christopher Mcintosh DO; Wilder Pinzon MD Technologist:Norberto Montalvo, RT(R)(CT); .. CTDI: DLP: Trnscb Date/Time: 03/14/2021 (1006) [email or web address] Orig Print D/T: S: 03/14/2021 (1011) PAGE 2 Signed Report- CT ABD PELVIS W/CONT 2021-01-19 10:21:00 [facility] : 1955 Sex: M Name: [facility]OW[facility] 1955 Age/S: 65 / M [address] [address] [place] Unit #: [id number] Loc: [place] [address] Phys: Wilder Pinzon MD Acct: [id number] Dis Date: Status: REG CLI PHONE #: [phone] Exam Date: 01/19/2021 0900 FAX #: Reason: PRIMARY MALIGNANT NEOPLASM OF ESOPHAGUS (DISORD EXAMS: CPT: [id number] CT ABD PELVIS W/CONT 66076 EXAMINATION: - CT CHEST W/CONTRAST, - CT ABD PELVIS W/CONT. LOCATION: S17. HISTORY: Primary malignant neoplasm esophagus with metastases, patient presents forfollow-up. COMPARISON: PET scan report dated 09/22/2020. TECHNIQUE: CT imaging was performed of chest, abdomen and pelvis after intravenous administration of 100 cc of Isovue-300. Oral contrast material was also administered. One or more the following dose reduction techniques were used: Automated exposure control, adjustment of mA and/or kV according to patient size, and use of iterative reconstruction technique. FINDINGS: Right- sided Port-A-Cath tip overlies cavoatrial junction. Partially visualized thyroid gland appears unremarkable. No axillary, mediastinal or hilar bulky lymphadenopathy is identified. No mediastinal mass is noted. No aneurysmal dilatation of thoracic aorta. Atherosclerotic coronary arterial and vascular calcifications. No pericardial or pleural effusion. The trachea and central bronchi are patent. No pneumothorax. No focal consolidation. Bibasilar dependent changes. Emphysema. Small calcifications/scarring in right upper lobe. 3 mm right upper lobe nodules. Liver, gallbladder, spleen, pancreas and adrenals appear unremarkable. Too small to characterize low-attenuation structures within both kidneys. No hydronephrosis. Underdistended urinary bladder containing high attenuation material, presumably representing contrast from prior MR exam. The bowel loops appear normal incourse and caliber. No bowel obstruction. Unremarkable appendix. Small hiatal hernia. No abdominal or pelvic bulky lymphadenopathy. No pneumoperitoneum or free fluid. Atherosclerotic vascular calcifications. Small fat-containing bilateral inguinal hernias. PAGE 1 Signed Report (CONTINUED) Name: PIETER FOWLER [facility] : 1955 Age/S: 65 / M [address] [address] [place] Unit #: [id number] Loc: [place] [address] Phys: Wilder Pinzon MD Acct: [id number] Dis Date: Status: REG CLI PHONE #: [phone] Exam Date: 01/19/2021 0900 FAX #: Reason: PRIMARY MALIGNANT NEOPLASM OF ESOPHAGUS (DISORD EXAMS:CPT: [id number] CT ABD PELVIS W/CONT 75136 (Continued) Visualized osseous structures demonstrate degenerative changes. Bilateral L5 spondylolysis with mild anterolisthesis at lumbosacral junction. Severe degenerative changes at L1-L2 with partial bony fusion. IMPRESSION: Small hiatal hernia. No pathologically enlarged bulky lymphadenopathy in chest or abdomen. 3 mm right upper lobe lung nodules, can be reassessed at follow-up. Other findings as above. at 1021 Reported and signed by: Malathi Shepherd M.D. CC: Christopher Mcintosh DO; Wilder Pinzon MD Technologist:Norberto Montalvo, RT(R)(CT) CTDI: DLP: Trnscb Date/Time: 01/19/2021 (1021) [email or web address] Orig Print D/T: S: 01/19/2021 (1024) PAGE 2 Signed Report- CT CHEST W/[id number] 10:21:00 [facility] : 1955 Sex: M [facility] 1955 Age/S: 65 / M [address] [address] [place] Unit #: [id number] Loc: [place] [address] Phys: Wilder Pinzon MD Acct: [id number] Dis Date: Status: REG CLI PHONE #: [phone] Exam Date: 01/19/2021 0855 FAX #: Reason: PRIMARY MALIGNANT NEOPLASM OF ESOPHAGUS DISORDE EXAMS: CPT: [id number] CT CHEST W/CONTRAST 88161 EXAMINATION: - CT CHEST W/CONTRAST, - CT ABD PELVIS W/CONT. LOCATION: S17. HISTORY: Primary malignant neoplasm esophagus with metastases, patient presents for follow-up. COMPARISON: PET scan report dated 09/22/2020. TECHNIQUE: CT imaging was performed of chest,abdomen and pelvis after intravenous administration of 100 cc of Isovue-300. Oral contrast material was also administered. One or more the following dose reduction techniques were used: Automated exposure control, adjustment of mA and/or kV according to patient size, and use of iterative reconstruction technique. FINDINGS: Right- sided Port-A-Cath tip overlies cavoatrial junction. Partially visualizedthyroid gland appears unremarkable. No axillary, mediastinal or hilar bulky lymphadenopathy is identified. No mediastinal mass is noted. No aneurysmal dilatation of thoracic aorta. Atherosclerotic coronary arterial and vascular calcifications. No pericardial or pleural effusion. The trachea and central bronchi are patent. No pneumothorax. No focal consolidation. Bibasilar dependent changes. Emphysema. Small calcifications/scarring in right upper lobe. 3 mm right upper lobe nodules. Liver, gallbladder, spleen, pancreas and adrenals appear unremarkable. Too small to characterize low-attenuation structures within both kidneys. No hydronephrosis. Underdistended urinary bladder containing high attenuation material, presumably representing contrast from prior MR exam. The bowel loops appear normal in course and caliber. No bowel obstruction. Unremarkable appendix. Small hiatal hernia. No abdominal orpelvic bulky lymphadenopathy. No pneumoperitoneum or free fluid. Atherosclerotic vascular calcifications. Small fat-containing bilateral inguinal hernias. PAGE 1 Signed Report (CONTINUED) Name: PIETER FOWLER [facility] [place] : 1955 Age/S: 65 / M [address] [address] [place] Unit #: [id number] Loc: [place] [address] Phys: Wilder Pinzon MD Acct: [id number] Dis Date: Status: REG CLI PHONE #: [phone] Exam Date: 01/19/2021 0855 FAX #: Reason: PRIMARY MALIGNANT NEOPLASM OF ESOPHAGUS DISORDE EXAMS: CPT: [id number] CT CHEST W/CONTRAST 55598 (Continued) Visualized osseous structures demonstrate degenerative changes. Bilateral L5 spondylolysis with mild anterolisthesis at lumbosacral junction. Severe degenerative changes at L1-L2 with partial bony fusion. IMPRESSION: Small hiatal hernia. No pathologicallyenlarged bulky lymphadenopathy in chest or abdomen. 3 mm right upper lobe lung nodules, can be reassessed at follow-up. Other findings as above. at 1021 Reported and signed by: Malathi Shepherd M.D. CC: Christopher Mcintosh DO; Wilder Pinzon MD Technologist:Norberto Montalvo, RT(R)(CT) CTDI: DLP: Trnscb Date/Time: 01/19/2021 (1021) [email or web address] Orig Print D/T: S: 01/19/2021 (1024) PAGE 2 Signed Report- MRI BRAIN W WO [id number] 09:07:00 [facility] : 1955 Sex: M FAX: Christopher Hankins DO [phone] Camps: PM St: REG FAX: Y Wilder Pinzon MD [phone] Name: [place] : 1955 Age/S: 65/M [address] [address] [place] Unit #: [id number] Loc: [place] [address] Phys: Wilder Pinzon MD Acct: [id number] Dis Date: Status: REG CLI PHONE #: [phone] Exam Date: 01/19/2021 0803 FAX #: Reason: PRIMARY MALIGNANT NEOPLASM OF ESOPHAGUS EXAMS: CPT: [id number] MRI BRAIN W WO CONT 35292 Dictation location: U19. MRI BRAIN WITHOUT AND WITH CONTRAST HISTORY: PRIMARY MALIGNANT NEOPLASM OF ESOPHAGUS TECHNIQUE: Multiplanar and multiple pulse sequences were obtained throughout the brain without and with gadolinium (14 mL Dotarem). COMPARISON: MRI brain 10/16/20 FINDINGS: Diffusionweighted imaging shows no evidence of acute ischemia. The pituitary and posterior fossa are unremarkable. There is likely changes of a left posterior parietal craniotomy or domo hole. Small area of encephalomalacia is noted along the posterior left parietal lobe, unchanged. No definite underlying lesion or abnormal enhancement noted in the region. A few small scattered T2/FLAIR signal hyperintensities noted within the white matter. No hemorrhage, mass, mass effect, hydrocephalus, midline shift or extra-axial fluid collection. No abnormal enhancement. Mild thickening of the ethmoid sinuses and right frontal sinus. The mastoid air cells are clear. IMPRESSION: No evidence of acute ischemia or intracranial metastasis. Stable postoperative changes posteriorly along the left parietal region with underlying small area of encephalomalacia. No definite lesion or abnormal enhancement seen in the region to indicate residual or recurrent disease. PAGE 1 Signed Report (CONTINUED) FAX: Christopher Marin DO [phone] Camps: PM St: REG FAX: Wilder Mitchell MD [phone] Name: PIETER FOWLER [facility] : 1955 Age/S: 65/M [address] [address] [place] Unit #: [id number] Loc: [place] [address] Phys: Wilder Pinzon MD Acct:[id number] Dis Date: Status: REG CLI PHONE #: [phone] Exam Date: 01/19/2021 0851 FAX #: Reason: PRIMARY MALIGNANT NEOPLASM OF ESOPHAGUS EXAMS: CPT: [id number] MRI BRAIN W WO CONT 83301 (Continued) at 0907 Reported and signed by: Adilsno Chacon M.D. CC: Christopher Mcintosh DO; Wilder Pinzon MD Technologist: Mirian DoradoRT(R)(CT) Transcribed Date/Time/By: 01/19/2021 (0907) :[email or web address] Orig Print D/T: S: 01/19/2021 (0910) PAGE 2 Signed Report- MRI BRAIN W WO [id number] 10:08:00 [facility] : 1955 Sex: M FAX: Christopher Hankins DO [phone] Camps: PM St: REG FAX: Y Wilder Pinzon MD [phone] Name: PIETER FOWLER [facility] : 1955 Age/S: 64/M [id number] [address] [place] Unit #: [id number] Loc: [place] [address] Phys: Wilder Pinzon MD Acct: [id number] Dis Date: Status: REG CLI PHONE #: [phone] Exam Date: 10/16/2020 0940 FAX #: Reason: MALIGNANT NEOPLASM EXAMS: CPT: [id number] MRI BRAIN W WO CONT 25846 B2 - MRI BRAIN W WO CONT HISTORY: MALIGNANT NEOPLASM TECHNIQUE: Multiplanar multisequence MR images of the brain were obtained before and after intravenous contrast. COMPARISON: None FINDINGS: No abnormal brain p arenchymal signal. There is no mass, mass effect or abnormal extra-axial fluid collection. Diffusion-weighted images show no hyperacute, acute or early subacute infarction. The ventricles are normal insize, shape, and position. There are normal signal voids in the larger intracranial vessels. The paranasal sinuses and mastoid air cells are predominantly clear. The marrow signal pattern is within normal limits. No abnormal brain parenchymal or leptomeningeal enhancement. IMPRESSION: No significant intracranial abnormalities. Specifically, no evidence of metastatic disease. Electronically Signedby Lucero Arzola on 10/16/2020 at 1008 Reported and signed by: Dajuan Arzola M.D. CC: Christopher Cheatham DO; Wilder Pinzon MD Technologist: Coco Augustin RT(R)(MR) Transcribed Date/Time/By: 10/16/2020 (1008) :[email or web address] Orig Print D/T: S: 10/16/2020 (1011) PAGE 1 Signed ReportBLOOD UREA [id number] 09:17:00 Test Item Value Reference Range Interpretation Comments BLOOD UREA NITROGEN (test code = 11 MG/DL 7-18 N BUN) [id number] 09:17:00 Test Item Value Reference Range Interpretation Comments CREATININE (test code = CREAT) 0.6 MG/DL 0.8-1.3 L"
[2022-04-23] MEDS ORDERED: NA CHLORIDE 0.9% 1,000 ML ONE (15:46)
--- NOTE | 2022-04-23 15:53 | RAD REPORT ---
EXAM DESCRIPTION: CT - Head Brain Wo Cont - 04/23/2022 3:38 pm CLINICAL HISTORY: dizziness COMPARISON: No comparisons TECHNIQUE: All CT scans are performed using dose optimization technique as appropriate and may inclu de automated exposure control or mA/KV adjustment according to patient size. FINDINGS: No intracranial hemorrhage, hydrocephalus or extra-axial fluid collection.No areas of brai n edema or evidence of midline shift. Craniotomy changes at the occiput. The paranasal sinuses and mastoids are clear. The calvarium is intact. Remote right nasal bone fractu re. IMPRESSION: No acute intracranial abnormality.
--- NOTE | 2022-04-23 15:53 | RAD REPORT ---
EXAM DESCRIPTION: RAD - Chest Single View - 04/23/2022 3:47 pm CLINICAL HISTORY: hypertension COMPARISON: No comparisons FINDINGS: Lines: Right IJ approach Port-A-Cath with tip overlying the SVC . Lungs: No evidence of edema or pneumonia. Pleural: No significant pleural effusions or pneumothorax. Cardiac: The heart size is within normal limits. Mediastinum: Within normal limits. Bones: No acute fractures. Other: None IMPRESSION: No acute cardiopulmonary disease.
[2022-04-23 16:08] LABS: Urine Blood 2+ (Negative); Urine Glucose Negative (Negative); Urine Protein 2+ (Negative); Urine Specific Gravity >=1.030 (1.005-1.030); Urine pH 5.5 (5.0-7.0)
[2022-04-23 16:17] LABS: Absolute Lymphocytes (CBC) 0.5 K/uL (0.7-4.9); Hematocrit 49.9 % (39.6-49.0); MCV 96.2 fL (80-100); MPV 7.8 fL (7.6-11.3); RBC Red Blood Cell Count 5.18 M/uL (4.33-5.43)
[2022-04-23 16:19] LABS: Urine Mucus Slight /HPF (None Seen)
[2022-04-23 16:33] LABS: Protime INR 1.15
[2022-04-23 16:38] LABS: Bilirubin Direct 0.1 mg/dL (0-0.2); Bilirubin Total 0.4 mg/dL (0.2-1.0); Magnesium 2.2 mg/dL (1.8-2.4); Potassium 3.5 mmol/L (3.5-5.1); Protein, Total 7.2 g/dL (6.4-8.2); Troponin High Sensitivity 10.9 pg/mL (<58.9)
[2022-04-23] MEDS ORDERED: METOPROLOL TAR 25 MG TAB ONE (17:01)
[2022-04-23] MEDS ORDERED: ASPIRIN 81 MG CHEWABLE TABLET ONE (17:01)
--- NOTE | 2022-04-23 17:29 | EDPHYS ---
Physician Documentation [facility] Name: Viktor Velázquez Jr Age: 66 yrs Sex: Male : 1955 Arrival Date: 04/23/2022 Time: 14:47 Bed 24 Private MD: ED Physician Jacinto Viramontes HPI: 04/23 15:30 This 66 yrs old Male presents to ER via Ambulatory with complaints of Abnormal Lab cp Results, High Blood Pressure. 15:30 The patient has elevated blood pressure and discovered this at a physician's office. cp Historical: - Allergies: 14:56 Sulfa (Sulfonamide Antibiotics); ld1 14:56 Iodine; ld1 - Home Meds: 15:14 Hydrochlorothiazide Oral [Active]; Keppra Oral [Active]; eh3 - PMHx: 14:56 Hypertensive disorder; Cancer; ld1 15:14 COPD; eh3 - Immunization history:: Adult Immunizations up to date, Client reports receiving the 2nd dose of the Covid vaccine. - Social history:: Smoking status: Patient reports the use of cigarette tobacco products, smokes one pack cigarettes per day. Patient/guardian denies using alcohol. ROS: 15:35 Eyes: Negative for injury, pain, redness, and discharge. cp 15:35 Constitutional: Negative for body aches, chills, fever, poor PO intake. 15:35 ENT: Negative for drainage from ear(s), ear pain, sore throat, difficulty swallowing, difficulty handling secretions. 15:35 Cardiovascular: Negative for chest pain, edema. 15:35 Respiratory: Negative for cough, shortness of breath, wheezing. 15:35 Abdomen/GI: Negative for abdominal pain, nausea, vomiting, and diarrhea. Exam: 15:36 ECG was reviewed by the Attending Physician. cp 15:40 Constitutional: The patient appears in no acute distress, alert, awake, cp non-diaphoretic, non-toxic, well developed, well nourished. 15:40 Head/Face: Normocephalic, atraumatic. cp 15:40 Eyes: Periorbital structures: appear normal, Conjunctiva: normal, no exudate, no injection, Sclera: no appreciated abnormality, Lids and lashes: appear normal, bilaterally. 15:40 ENT: External ear(s): are unremarkable, Ear canal(s): are normal, clear, TM's: dullness, bilaterally, Nose: is normal, Mouth: Lips: moist, Oral mucosa: moist, Posterior pharynx: Airway: no evidence of obstruction, patent, swelling, is not appreciated, erythema, that is mild, exudate, is not appreciated. 15:40 Neck: ROM/movement: is normal, is supple, without pain, no range of motions limitations. 15:40 Chest/axilla: Inspection: normal, Palpation: crepitus, is not appreciated, tenderness, is not appreciated. 15:40 Cardiovascular: Rate: tachycardic, Rhythm: regular, Edema: is not appreciated, JVD: is not appreciated. 15:40 Respiratory: the patient does not display signs of respiratory distress, Respirations: normal, no use of accessory muscles, no retractions, labored breathing, is not present, Breath sounds: are clear throughout, no decreased breath sounds, no stridor, no wheezing. 15:40 Abdomen/GI: Inspection: abdomen appears normal, Palpation: abdomen is soft and non-tender, in all quadrants, rebound tenderness, is not appreciated, involuntary guarding, is not appreciated. 15:40 Back: pain, is absent, ROM is normal. 15:40 Neuro: Orientation: to person, place \T\ time. Mentation: is normal, Cerebellar function: is grossly normal, Motor: moves all fours, strength is normal, Sensation: is normal. Vital Signs: 14:53 BP 182 / 101; Resp 18; Temp 98.9(TE); Pulse Ox 100% on R/A; Weight 74.39 kg; Height 5 ld1 ft. 7 in. (170.18 cm); Pain 0/10; 15:17 BP 129 / 84; Pulse 106; Resp 18; Pulse Ox 98% on R/A; eh3 16:15 BP 145 / 92; Pulse 102; Resp 20; Pulse Ox 95% on R/A; eh3 17:15 BP 149 / 72; Pulse 105; Resp 20; Pulse Ox 95% on R/A; eh3 18:15 BP 100 / 71; Pulse 85; Resp 20; Pulse Ox 95% on R/A; eh3 19:15 BP 128 / 82; Pulse 87; Resp 20; Pulse Ox 97% on R/A; eh3 14:53 Body Mass Index 25.69 (74.39 kg, 170.18 cm) ld1 MDM: 15:12 Patient medically screened. 19:20 Data reviewed: vital signs, nurses notes, lab test result(s), EKG, radiologic studies, cp CT scan, plain films. 04/23 15:22 Order name: Basic Metabolic Panel; Complete Time: 16:44 cp 04/23 16:44 Interpretation: Normal except: NA 134; CO2 33. 04/23 15:22 Order name: CBC with Diff; Complete Time: 16:44 cp 04/23 16:44 Interpretation: Normal except: HCT 49.9; PLT 123; LYM% 9.0; MN% 17.9; LYMA 0.5. 04/23 15:22 Order name: LFT's; Complete Time: 16:44 04/23 15:22 Order name: Magnesium; Complete Time: 16:44 cp 04/23 15:22 Order name: PT-INR; Complete Time: 16:44 04/23 15:22 Order name: Troponin HS; Complete Time: 16:44 04/23 17:05 Interpretation: Within normal limits: Troponin HS 10.9. cp 04/23 15:22 Order name: CT Head Brain wo Cont; Complete Time: 16:11 04/23 16:12 Interpretation: Report reviewed. 04/23 15:22 Order name: XRAY Chest (1 view); Complete Time: 16:11 cp 04/23 16:12 Interpretation: Report review. 04/23 15:22 Order name: BNP; Complete Time: 16:44 cp 04/23 15:22 Order name: Urine Microscopic Only; Complete Time: 16:26 cp 04/23 16:26 Interpretation: Normal except: URBC 11-20. 04/23 16:08 Order name: Urine Dipstick-Ancillary; Complete Time: 16:11 EDMS 04/23 16:11 Interpretation: Normal except: UBLD 2+; UPROT 2+. cp 04/23 17:44 Order name: LAB Add On cp 04/23 17:44 Order name: D-Dimer; Complete Time: 19:20 cp 04/23 18:20 Order name: CT Chest For PE Angio; Complete Time: 19:20 cp 04/23 15:22 Order name: EKG; Complete Time: 15:23 cp 04/23 15:22 Order name: Cardiac monitoring; Complete Time: 15:24 04/23 15:22 Order name: EKG - Nurse/Tech; Complete Time: 15:35 04/23 15: Order name: IV Saline Lock; Complete Time: 16:02 04/23 15: Order name: Labs collected and sent; Complete Time: 16:02 04/23 15: Order name: O2 Per Protocol; Complete Time: 15:24 04/23 15: Order name: O2 Sat Monitoring; Complete Time: 15:24 04/23 15: Order name: Urine Dipstick-Ancillary (obtain specimen); Complete Time: 16:09 EC:36 Rate is 106 beats/min. Rhythm is regular. OK interval is normal. QRS interval is cp normal. QT interval is normal. T waves are Inverted in lead aVR. Interpreted by me. Reviewed by me. Administered Medications: 16:02 Drug: NS 0.9% 500 ml Route: IV; Rate: bolus; Site: right antecubital; 3 17:03 Follow up: IV Status: Completed infusion; IV Intake: 500ml 3 16:02 Drug: NS 0.9% 500 ml Route: IV; Rate: 100 ml/hr; Site: right antecubital; eh3 21:51 Follow up: IV Status: IV converted to saline lock; IV Intake: 400ml eh3 17:03 Drug: Metoprolol 25 mg Route: PO; eh3 17:49 Follow up: Response: Blood pressure is lowered eh3 17:03 Drug: Aspirin Chewable Tablet 324 mg Route: PO; eh3 17:50 Follow up: Response: No adverse reaction eh3 19:25 Drug: Nicoderm CQ Patch 21 mg/24 hr 1 patches Route: Transdermal; Site: affected area; eh3 Disposition: 16:03 Co-signature as Attending Physician, Jacinto Viramontes MD I agree with the assessment and rt plan of care. Disposition Summary: 04/23/22 19:22 Discharge Ordered Location: Home(04/23/22 19:22) cp Problem: new(04/23/22 19:22) cp Symptoms: have improved(04/23/22 19:22) cp Condition: Stable(04/23/22 19:22) cp Diagnosis - Hypertensive heart disease without heart failure(04/23/22 19:22) cp - COPD/ Chronic obstructive pulmonary disease, unspecified(04/23/22 19:22) cp Followup: cp - With: Private Physician - When: 2 - 3 days - Reason: Recheck today's complaints Discharge Instructions: - Discharge Summary Sheet cp - Chronic Obstructive Pulmonary Disease cp - Hypertension, Adult cp - Steps to Quit Smoking cp - Aspirin and Your Heart cp - Form - Blood Pressure Record Sheet cp - Smoking Tobacco Information, Adult cp - How to Take Your Blood Pressure cp Forms: - Medication Reconciliation Form cp - Thank You Letter cp - Antibiotic Education cp - Prescription Opioid Use cp Prescriptions: - Metoprolol Tartrate 25 mg Oral Tablet - take 0.5 tablet by ORAL route 2 times per day with a meal; 20 tablet; Refills: cp 0, Product Selection Permitted Signatures: Dispatcher [employer] EDMS Shaw Dash PA PA cp Shira Becker RN RN ld1 Codie Kelly RN RN eh3 Jacinto Viramontes MD MD rt Corrections: (The following items were deleted from the chart) 15:25 15:23 UA MICROSCOPIC+U.LAB.BRZ ordered. EDWV EDMS 17:04/22 15:35 Constitutional: Negative for body aches, chills, fever, poor PO intake, cp cp 04/23 17:09 04/22 15:35 Cardiovascular: Negative for chest pain, edema, cp cp 04/23 17:09 04/22 15:35 Respiratory: Negative for cough, shortness of breath, wheezing, cp cp 04/23 17:09 04/22 15:35 Eyes: Negative for injury, pain, redness, and discharge, cp cp 04/23 17:09 04/22 15:35 ENT: Negative for drainage from ear(s), ear pain, sore throat, difficulty cp swallowing, difficulty handling secretions, cp 04/23 17:09 04/22 15:35 Abdomen/GI: Negative for abdominal pain, nausea, vomiting, and diarrhea, cp cp 04/23 17:44 17:28 Home cp cp 17:44 17:28 new cp cp 17:44 17:28 have improved cp cp 17:44 17:28 Stable cp cp 17:44 17:28 Hypertensive heart disease without heart failure cp cp 17:44 17:28 COPD/ Chronic obstructive pulmonary disease, unspecified cp cp
--- NOTE | 2022-04-23 17:29 | ER ---
Nurse's Notes [facility] Name: Viktor Velázquez Jr Age: 66 yrs Sex: Male : 1955 Arrival Date: 04/23/2022 Time: 14:47 Bed 24 Private MD: Diagnosis: Hypertensive heart disease without heart failure;COPD/ Chronic obstructive pulmonary disease, unspecified Presentation: 04/23 14:53 Chief complaint: Patient states: Dizziness, high blood pressure since beginning of ld1 March. Pt reports being taken off HTN meds in 2018. Pt reporting frequent urination. Coronavirus screen: At this time, the client does not indicate any symptoms associated with coronavirus-19. Ebola Screen: No symptoms or risks identified at this time. Initial Sepsis Screen: Does the patient meet any 2 criteria? No. Patient's initial sepsis screen is negative. Does the patient have a suspected source of infection? No. Patient's initial sepsis screen is negative. Risk Assessment: Do you want to hurt yourself or someone else? Patient reports no desire to harm self or others. Onset of symptoms was April 23, 2022. 14:53 Method Of Arrival: Ambulatory ld1 14:53 Acuity: LEROY 3 ld1 Triage Assessment: 14:58 General: Appears in no apparent distress. comfortable, Behavior is calm, cooperative, ld1 appropriate for age. Pain: Denies pain. EENT: No signs and/or symptoms were reported regarding the EENT system. Neuro: Level of Consciousness is awake, alert, obeys commands, Oriented to person, place, time, situation, Appropriate for age. Cardiovascular: Capillary refill < 3 seconds Patient's skin is warm and dry. Respiratory: Airway is patent Respiratory effort is even, unlabored. GI: Abdomen is flat, non-distended. : No signs and/or symptoms were reported regarding the genitourinary system. Derm: No signs and/or symptoms reported regarding the dermatologic system. Musculoskeletal: No signs and/or symptoms reported regarding the musculoskeletal system. Historical: - Allergies: 14:56 Sulfa (Sulfonamide Antibiotics); ld1 14:56 Iodine; ld1 - Home Meds: 15:14 Hydrochlorothiazide Oral [Active]; Keppra Oral [Active]; eh3 - PMHx: 14:56 Hypertensive disorder; Cancer; ld1 15:14 COPD; eh3 - Immunization history:: Adult Immunizations up to date, Client reports receiving the 2nd dose of the Covid vaccine. - Social history:: Smoking status: Patient reports the use of cigarette tobacco products, smokes one pack cigarettes per day. Patient/guardian denies using alcohol. Screenin:17 Abuse screen: Denies threats or abuse. Denies injuries from another. Nutritional eh3 screening: No deficits noted. Tuberculosis screening: No symptoms or risk factors identified. Fall Risk None identified. Assessment: 15:17 General: Appears in no apparent distress. comfortable, Behavior is calm, cooperative, eh3 appropriate for age. Pain: Denies pain. Neuro: Level of Consciousness is awake, alert, obeys commands, Oriented to person, place, time, situation. Cardiovascular: Capillary refill < 3 seconds Patient's skin is warm and dry. Respiratory: Airway is patent Respiratory effort is even, unlabored, Respiratory pattern is regular, symmetrical. GI: No signs and/or symptoms were reported involving the gastrointestinal system. Abdomen is round non-distended. : No signs and/or symptoms were reported regarding the genitourinary system. EENT: No signs and/or symptoms were reported regarding the EENT system. Derm: No signs and/or symptoms reported regarding the dermatologic system. Musculoskeletal: No signs and/or symptoms reported regarding the musculoskeletal system. Circulation, motion, and sensation intact. Range of motion: intact in all extremities. 16:15 Reassessment: Patient appears in no apparent distress at this time. Patient and/or eh3 family updated on plan of care and expected duration. Pain level reassessed. Patient is alert, oriented x 3, equal unlabored respirations, skin warm/dry/pink. 17:15 Reassessment: Patient appears in no apparent distress at this time. Patient and/or eh3 family updated on plan of care and expected duration. Pain level reassessed. Patient is alert, oriented x 3, equal unlabored respirations, skin warm/dry/pink. 18:15 Reassessment: Patient appears in no apparent distress at this time. Patient and/or eh3 family updated on plan of care and expected duration. Pain level reassessed. Patient is alert, oriented x 3, equal unlabored respirations, skin warm/dry/pink. 19:15 Reassessment: Patient appears in no apparent distress at this time. Patient and/or eh3 family updated on plan of care and expected duration. Pain level reassessed. Patient is alert, oriented x 3, equal unlabored respirations, skin warm/dry/pink. Vital Signs: 14:53 BP 182 / 101; Resp 18; Temp 98.9(TE); Pulse Ox 100% on R/A; Weight 74.39 kg; Height 5 ld1 ft. 7 in. (170.18 cm); Pain 0/10; 15:17 BP 129 / 84; Pulse 106; Resp 18; Pulse Ox 98% on R/A; eh3 16:15 BP 145 / 92; Pulse 102; Resp 20; Pulse Ox 95% on R/A; eh3 17:15 BP 149 / 72; Pulse 105; Resp 20; Pulse Ox 95% on R/A; eh3 18:15 BP 100 / 71; Pulse 85; Resp 20; Pulse Ox 95% on R/A; eh3 19:15 BP 128 / 82; Pulse 87; Resp 20; Pulse Ox 97% on R/A; eh3 14:53 Body Mass Index 25.69 (74.39 kg, 170.18 cm) ld1 Vitals: 15:17 Cardiac Rhythm Assessment Sinus tach. 3 ED Course: 14:47 Patient arrived in ED. rg4 14:56 Triage completed. ld1 14:58 Arm band placed on right wrist. ld1 15:07 Codie Kelly, RN is Primary Nurse. eh3 15:12 Shaw Dash PA is PHCP. cp 15:12 Jacinto Viramontes MD is Attending Physician. cp 15:17 Patient has correct armband on for positive identification. Bed in low position. Call [facility] light in reach. Side rails up X2. Client placed on continuous cardiac and pulse oximetry monitoring. NIBP monitoring applied. Door closed. Noise minimized. 15:39 CT Head Brain wo Cont In Process Unspecified. EDMS 15:49 XRAY Chest (1 view) In Process Unspecified. EDMS 15:58 Inserted saline lock: 20 gauge in right antecubital area, using aseptic technique. 3 Blood collected. 18:00 D-Dimer Sent. eh3 18:00 LAB Add On Sent. eh3 19:10 CT Chest For PE Angio In Process Unspecified. EDMS 19:44 No provider procedures requiring assistance completed. IV discontinued, intact, eh3 bleeding controlled, No redness/swelling at site. Pressure dressing applied. Administered Medications: 16:02 Drug: NS 0.9% 500 ml Route: IV; Rate: bolus; Site: right antecubital; eh3 17:03 Follow up: IV Status: Completed infusion; IV Intake: 500ml eh3 16:02 Drug: NS 0.9% 500 ml Route: IV; Rate: 100 ml/hr; Site: right antecubital; eh3 21:51 Follow up: IV Status: IV converted to saline lock; IV Intake: 400ml eh3 17:03 Drug: Metoprolol 25 mg Route: PO; eh3 17:49 Follow up: Response: Blood pressure is lowered eh3 17:03 Drug: Aspirin Chewable Tablet 324 mg Route: PO; eh3 17:50 Follow up: Response: No adverse reaction eh3 19:25 Drug: Nicoderm CQ Patch 21 mg/24 hr 1 patches Route: Transdermal; Site: affected area; eh3 Medication: 19:44 VIS not applicable for this client. eh3 Intake: 17:03 IV: 500ml; Total: 500ml. eh3 21:51 IV: 400ml; Total: 900ml. eh3 Outcome: 17:28 Discharge ordered by MD. cp 19:22 Discharge ordered by MD. cp 19:45 Discharged to home ambulatory. eh3 19:45 Condition: stable 19:45 Discharge instructions given to patient, Instructed on discharge instructions, follow up and referral plans. medication usage, Demonstrated understanding of instructions, follow-up care, medications, Prescriptions given X 1. 19:45 Patient left the ED. eh3 Signatures: Dispatcher [employer] EDMS Shaw Dash PA PA cp Garcia, Rubi rg4 Shira Becker RN RN ld1 Codie Kelly RN RN eh3 Corrections: (The following items were deleted from the chart) 15:18 15:17 BP 129 / 84; Pulse 106bpm; Resp 18bpm; Pulse Ox 98% RA; eh3 eh3
--- NOTE | 2022-04-23 19:19 | RAD REPORT ---
EXAM DESCRIPTION: CT - Chest For Pe Angio - 04/23/2022 7:08 pm CLINICAL HISTORY: r/o PE COMPARISON: No comparisons TECHNIQUE: Dynamically enhanced axial 3 mm thick images of the chest were obtained during administra tion of <100> mL Isovue 370 IV contrast. Coronal and oblique reconstruction images were generated and reviewed. Exam utilizes a protocol for optimal evaluation of pulmonary arterial tree. Maximum intensity projections 3D imaging was utilized All CT scans are performed using dose optimization technique as appropriate and may include automated exposure control or mA/KV adjustment according to patient size. FINDINGS: Chest Wall: No suspicious thyroid nodules or pathologic lymphadenopathy. Right upper chest wall Port-A-Cath. Lungs: No acute abnormality. Pleura: No significant effusions or pneumothorax. Mediastinum/hudson: No pathologic lymphadenopathy. Mild circumferential thickened distal esophagus whic h may reflect esophagitis. Pulmonary arteries/Aorta: No filling defect identified. No aortic aneurysm. Heart: No significant pericardial effusion. Normal heart size. Scattered coronary artery calcificatio ns. Upper abdomen: No acute abnormality. Bones: No acute abnormality. IMPRESSION: Negative for pulmonary embolism. No acute findings within the chest.
[2022-04-23] MEDS ORDERED: NICOTINE 21 MG/PAT TD ONE (19:21)
[2022-04-23 20:00] VITALS: TEMP 98.9
[2022-04-23 20:06] VITALS: BP 128/82; O2SAT 97
--- NOTE | 2022-04-24 11:36 | EKG ---
Test Date: 2022-04-23 Test Time: 15:33:00 Hand Molder And Caster: JUAN MEASUREMENT RESULTS: Intervals: Rate: 106 FL: 156 QRSD: 94 QT: 326 QTc: 433 [place]: P: 45 FL: 156 QRS: 73 T: 61 INTERPRETIVE STATEMENTS: Sinus tachycardia with premature atrial complexes Otherwise normal ECG No previous ECG available for comparison Electronically Signed On 04-24-22 11:34:33 MINIATURE MODEL MAKER by Ozzie Turpin
== END 2022-04-23 19:45 | disposition home or self-care (01) ==
LOC: ER 14:41
DX: I11.9 Hypertensive heart disease without heart failure (principal); J44.9 Chronic obstructive pulmonary disease, unspecified; I10 Essential (primary) hypertension; F17.210 Nicotine dependence, cigarettes, uncomplicated
CPT/HCPCS: 85025; 80048; 36415; 83735; 85610; 85379; 80076; 84484; 83880; 70450; 71275; 71045; Q9967; J7040; 81003; 81015; 93005